=== PATIENT | male | born 1980 | race Caucasian/White ===

== ENCOUNTER → 2021-10-22 13:21 | Outpatient (BNVA) | payer MEDICARE, MEDICAID, SELFPAY | PROVIDERS: PCP Internal Medicine; Visit Provider Anesthesiology | DX: M54.50 Low back pain, unspecified (principal); G90.529 Complex regional pain syndrome I of unspecified lower limb | CPT/HCPCS: 99202 ==

== ENCOUNTER 2023-11-08 23:46 | Emergency (ER) | payer MEDICARE, MEDICAID, SELFPAY ==
--- NOTE | ~2023-11-08 | XR_ITS ---
EXAMINATION: XR MANDIBLE CLINICAL INFORMATION: Possible jaw injury. COMPARISON: None available. TECHNIQUE: 4 views of the mandible were obtained. FINDINGS: There are no fractures or dislocations. The right mandibular second premolar and first molar have been recently extracted, as evidenced by empty sockets. No bone, joint or soft tissue abnormality is demonstrated. XR/XR mandible min 4V IMPRESSION: * No evidence of fracture or dislocation. * Recently extracted right mandibular second premolar and first molar.
[2023-11-08 23:53] VITALS: BP 130/75; PULSE 77; RESP 18; TEMP 36.4; O2SAT 99; BMI 29.7
--- OUTSIDE RECORDS SUMMARY | 2023-11-09 00:06 | XMS_ITS | Continuity of Care Document ---
Author Name Unknown Organization [facility] Address [address] [place] [address]- Care Team Providers Care Director Of Corporate Sales Name Role Phone Paul Cortez III, MD Primary Care Physician [place] [facility] [place] [place] [id number] Date(s): 04/01/20 - 05/01/20 [facility] [address] [place] [address]- [facility] Attending Physician: Admtr, [id number] Admitting Physician: [id number] Referring Physician: Admtr, Ar8 Allergies, Adverse Reactions, Alerts Substance Reaction Severity Status NKA Active Medications Custom calf portion Juxtafit CC2 with one pair hybrid socks Custom calf portion Juxtafit CC2 with one pair hybrid socks, See Instructions, # 1 each, Refills 0,Tot. Refills 0, Maintenance, dx: right leg lymphedema, 04/01/20 12:20:00 EDT, Supply Start Date: 04/01/20 Status: Ordered Evaluate and Treat Evaluate and Treat, See Instructions, # 1 each, Refills 0, Tot. Refills 0, Maintenance, Dx: Lymphedema, 09/27/19 15:20:28 EDT, Compound Start Date: 09/27/19 Status: Ordered Flucytosine 37.5 mg/kg, By Mouth, Every 6 hours, Maintenance, 09/15/19 15:45:23 EDT Start Date: 09/15/19 Status: Ordered gabapentin 300 mg oral capsule 300 mg, 1, capsule, By Mouth, 3 times a day, # 90 capsule, Refills 0, Maintenance, 09/15/19 15:44:57 EDT Start Date: 09/15/19 Status: Ordered hydrOXYzine hydrochloride 25 mg oral tablet 1 tablet = 25 mg, By Mouth, 4 times a day, PRN for anxiety, # 40 tablet, 0 Refills, Maintenance, 09/15/19 15:46:01 EDT, Tablet Start Date: 09/15/19 Status: Ordered oxyCODONE 15 mg oral tablet 1 tablet = 15 mg, By Mouth, Every 6 hours, PRN for pain, 0 Refills, Maintenance, 09/15/19 15:44:51 EDT, Tablet, Partial fill upon patient request Start Date: 09/15/19 Status: Ordered pneumatic pump pneumatic pump, See Instructions, # 1 each, Refills 0, Tot. Refills 0, Maintenance, DX : [id number] 189.9, 10/20/19 9:04:48 EST, Compound Start Date: 10/20/19 Status: Ordered Prilosec OTC = 20 mg, By Mouth, Daily, 0 Refills, Maintenance, 09/15/19 15:47:29 EDT Start Date: 09/15/19 Status: Ordered Right LE lower leg and ankle/foot compression wrap Right LE lower leg and ankle/foot compression wrap, See Instructions, # 1 each, Refills 0, Tot. Refills 0, Maintenance, Dx: Lymphedema I89.0 Strength 30-40 mmHg, 04/01/20 11:54:00 EDT, Compound Start Date: 04/01/20 Status: Ordered Social History Social History Type Response Smoking Status Smoker, current stat us unknown entered on: 09/27/19 Sex
--- OUTSIDE RECORDS SUMMARY | 2023-11-09 00:06 | XMS_ITS | Continuity of Care Document ---
Author Name Unknown Organization [facility] Address [address] [place] [address]- Care Team Providers Care Department Administrator Name Role Phone Paul Cortez III, MD Primary Care Physician Encounter [facility] [place] Date(s): 01/01/20 - 01/11/20 [facility] [address] [address]- [facility] Attending Physician: Flor Lozano Admitting Physician: Flor Lozano Referring Physician: AdmtrFlor Allergies, Adverse Reactions, Alerts Substance Reaction Severity Status NKA Active Medications Evaluate and Treat Evaluate and Treat, See [...] 0, Tot. Refills 0, Maintenance, DX : [id number] 189.9, 10/20/19 9:04:48 EST, Compound Start Date: 10/20/19 Status: Ordered Prilosec OTC = 20 mg, By Mouth, Daily, 0 Refills, Maintenance, 09/15/19 15:47:29 EDT Start Date: 09/15/19 Status: Ordered Right LE lower leg and ankle/foot compression wrap Right LE lower leg and ankle/foot compression wrap, See Instructions, # 1 each, Refills 0, Tot. Refills 0, Maintenance, Dx: Lymphedema I89.0, 10/16/19 9:52:34 EST, Compound Start Date: 10/16/19 Status: Ordered Social History Social History Type Response Smoking Status Smoker, current stat us unknown entered on: 09/27/19 Sex
--- OUTSIDE RECORDS SUMMARY | 2023-11-09 00:06 | XMS_ITS | Continuity of Care Document ---
Author Name Unknown Organization [facility] Address [address] [place] [address]- Care Team Providers Care Capital Project Engineer Name Role Phone Diego OBRIEN MD, Paul Ge Primary Care Physician [phone] [facility] [place] Date(s): 04/01/20 - 04/08/20 [facility] [address] [place] [address]- [facility] Attending Physician: Kathya Hernandez NP Admitting Physician: Mary CAMPBELL, Kathya Penn Referring Physician: Kathya Hernandez NP Allergies, Adverse Reactions, Alerts Substance Reaction Severity [...] 0, Tot. Refills 0, Maintenance, DX : [id number] 189.9, 10/20/19 9:04:48 EST, Compound Start Date: [...]
--- OUTSIDE RECORDS SUMMARY | 2023-11-09 00:06 | XMS_ITS | Continuity of Care Document ---
Author Name Unknown Organization [facility] Address [address] [place] [address]- Care Team Providers Care Concrete Floater Name Role Phone Diego OBRIEN MD, Paul Ge Primary Care Physician Encounter [facility] [place] Date(s): 12/29/19 - 01/05/20 [facility] [address] [place] [address]- [facility] Attending Physician: Kathya Hernandez NP Admitting Physician: Kathya Hernandez NP Allergies, Adverse Reactions, [...] 0, Tot. Refills 0, Maintenance, DX : [id number] 189.9, 10/20/19 9:04:48 EST, Compound Start Date: [...] EST, Compound Start Date: 10/16/19 Status: Ordered Vital Signs Most recent to oldest [Reference Range]: 1 Height 178 cm (12/29/19 10:30 AM) Weight 109 kg (12/29/19 10:30 AM) Body Mass Index [18.5-24.99] 34.4 *>HHI* (12/29/19 10:30 AM) Blood Pressure [90-138/55-84 mm Hg] 148/ 74mm Hg *H* (12/29/19 10:30 AM) Blood pressure sites Arm, left (12/29/19 10:30 AM) Weight Obtained Via Patient/family state d (12/29/19 10:30 AM) Social History Social History Type Response Smoking Status Smoker, current stat us unknown entered on: 09/27/19 Sex
--- OUTSIDE RECORDS SUMMARY | 2023-11-09 00:06 | XMS_ITS | Continuity of Care Document ---
Author Name Unknown Organization [facility] Address [address] [facility], [address] Floor, [address] [place] [address]- Care Team Providers Care High School History Teacher Name Role Phone Paul Cortez III, MD Primary Care Physician [phone] Encounter [facility] [place] Date(s): 10/31/19 - 11/10/19 [facility] [address], [address] [place] [address]- [facility] Attending Physician: Flor Lozano Admitting Physician: Flor [...] 0, Tot. Refills 0, Maintenance, DX : [id number] 189.9, 10/20/19 9:04:48 EST, Compound Start Date: [...]
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
--- OUTSIDE RECORDS SUMMARY | 2023-11-09 00:06 | XMS_ITS | Continuity of Care Document ---
Author Name Unknown Organization [facility] Address [address] [place] [address]- Care Team Providers Care Skip Operator Name Role Phone Paul Cortez III, MD Primary Care Physician [phone] Encounter [facility] [place] Date(s): 10/11/19 - 11/17/[address] [address]- [facility] Discharge Disposition: A-D/C Home Attending Physician: Paul Cortez III, MD Admitting Physician: Paul Cortez III, MD Referring Physician: Paul Cortez III, MD Allergies, Adverse Reactions, Alerts Substance Reaction [...] 0, Tot. Refills 0, Maintenance, DX : [id number] 189.9, 10/20/19 9:04:48 EST, Compound Start Date: [...]
--- OUTSIDE RECORDS SUMMARY | 2023-11-09 00:06 | XMS_ITS | Continuity of Care Document ---
Author Name Unknown Organization [facility] Address [address] [place] [address]- Care Team Providers Care Book Retailer Name Role Phone Paul Cortez III, MD Primary Care Physician [phone] [id number]/24/19 - 12/04/19 [place] [address]- [facility] Attending Physician: Flor Lozano Admitting Physician: AdmtrFlor Referring Physician: Admtr, Ar8 Allergies, Adverse Reactions, [...] 0, Tot. Refills 0, Maintenance, DX : [id number] 189.9, 10/20/19 9:04:48 EST, Compound Start Date: [...]
--- NOTE | 2023-11-09 00:55 | ED.GENADULT ---
HPI - General Adult General Chief complaint: General Medical Stated complaint: Jaw pain Time Seen by Provider: 11/09/23 00:53 Source: patient Mode of arrival: ambulatory Limitations: no limitations History of Present Illness HPI narrative: Patient had difficult right lower premolar tooth extraction about 3 weeks ago since complaining of pain in that area been seen by dentist 2 times still having some swelling and pain Related Data Home Medications Medication Instructions Recorded Confirmed buprenorphine 8 mg-naloxone 2 mg 20 mg sublingual DAILY 10/22/21 sublingual film (Suboxone) clonidine HCl 0.1 mg tablet 0.1 mg PO TID PRN anxiety 10/22/21 escitalopram oxalate 20 mg tablet 20 mg PO DAILY 10/22/21 gabapentin 300 mg capsule 900 mg PO TID 10/22/21 nortriptyline 10 mg capsule 10 mg PO BEDTIME 10/22/21 omeprazole 40 mg capsule,delayed 40 mg PO DAILY 10/22/21 release quetiapine 100 mg tablet 100 mg PO BEDTIME 10/22/21 Previous Rx's Medication Instructions Recorded naproxen 500 mg tablet 500 mg PO BID PRN pain #20 tabs 11/09/23 Allergies Allergy/AdvReac Type Severity Reaction Status Date / Time No Known Allergies Allergy Verified 10/22/21 13:30 Review of Systems Review of Systems: Yes all other systems are reviewed and are negative PMFSH Past Medical History Medical History Low back pain Complex regional pain syndrome I of lower limb Lateral epicondylitis (tennis elbow) Carpal tunnel syndrome Chronic leg pain Asthma Depression History of pneumonia History of tobacco use Social History Social History Advance Directives: No Advance Directives Information Provided: No Physical Exam ED Vital Signs: Vital Signs - 24 hr 11/08/23 23:53 Temperature 97.5 F Pulse Rate 77 Respiratory Rate 18 Blood Pressure 130/75 Pulse Oximetry 99 Oxygen Delivery Method Room Air BMI result Body Mass Index 29.7 Appearance: Alert. Oriented X3. No acute distress. ENT: Pharynx normal. Oral Mucosa moist no significant gum swelling slight tenderness at the site of tooth extraction Neck: Normal inspection. Neck supple. No cervical lymph node palpable CVS: Normal heart rate and rhythm. Pulses normal. Respiratory: No respiratory distress. Equal air entry bilateral, Neuro: Oriented X 3. Discharge Plan Discharge Clinical Impression: Dental caries Patient Disposition: Home, Self-Care Instructions: Toothache (ED) Additional Instructions: Take your medication medication as prescribed for pain Prescriptions: New naproxen 500 mg tablet 500 mg PO BID PRN (Reason: pain) Qty: 20 0RF No Action escitalopram oxalate 20 mg tablet 20 mg PO DAILY nortriptyline 10 mg capsule 10 mg PO BEDTIME quetiapine 100 mg tablet 100 mg PO BEDTIME clonidine HCl 0.1 mg tablet 0.1 mg PO TID PRN (Reason: anxiety) buprenorphine-naloxone [Suboxone] 8-2 mg film 20 mg sublingual DAILY gabapentin 300 mg capsule 900 mg PO TID omeprazole 40 mg capsule,delayed release(DR/EC) 40 mg PO DAILY Interventions: ED Discharge Assessment Last Done: 11/09/23 05:11 Discharge Date/Time: 11/09/23 05:12
== END 2023-11-09 05:12 | disposition home or self-care (01) ==
PROVIDERS: Emergency Provider Internal Medicine; PCP Internal Medicine
DX: K02.9 Dental caries, unspecified (principal)
CPT/HCPCS: 70110; 99282; 99283

== ENCOUNTER 2024-06-20 07:51 | Outpatient (REF) | payer MEDICARE, MEDICAID, SELFPAY | END 2024-06-20 07:52 | disposition home or self-care (01) | LOC: HO.SH 07:51 | PROVIDERS: PCP Internal Medicine; Visit Provider Nurse Practitioner Family | DX: Z01.118 Encounter for examination of ears and hearing with other abnormal findings (principal); H90.3 Sensorineural hearing loss, bilateral | CPT/HCPCS: 92557; 92567 ==

== ENCOUNTER 2024-09-12 22:12 | Emergency (ER) | payer OTHER, MEDICARE, MEDICAID, SELFPAY ==
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
[2024-09-12 22:34] VITALS: BP 122/72; PULSE 87; RESP 18; TEMP 36.9; O2SAT 98; BMI 26.8
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
[2024-09-13 03:29] VITALS: BP 125/79; PULSE 61; RESP 16; TEMP 37; O2SAT 97
[2024-09-13] MEDS: Cyclobenzaprine HCl 10 MG TABLET PO (03:29)
[2024-09-13 03:34] VITALS: BP 125/79; PULSE 61; RESP 16; TEMP 37; O2SAT 97
== END 2024-09-13 03:36 | disposition home or self-care (01) ==
PROVIDERS: Emergency Provider Emergency Medicine; PCP Internal Medicine
DX: M54.12 Radiculopathy, cervical region (principal); M54.2 Cervicalgia
CPT/HCPCS: 72125; 99284